=== PATIENT | female | born 1930 | race Caucasian/White ===

== ENCOUNTER 2018-02-14 09:38 | Inpatient (IN) | payer MEDICARE, OTHER ==
[~2018-02-14] VITALS: Ht 149.9 cm; Wt 49.0 kg
[2018-02-14 13:00] VITALS: BP 171/74
--- NOTE | 2018-02-14 13:00 | NUR ---
EYEDOTTER NOTES RECEIVED PATIENT VIA GURNEY FROM AMBULANCE, DIRECT ADMIT FROM SUGEY DURAN, MARSHA MICHELLE GAVE REPORT , AOX3, BANGLADESHI SPEAKING, FAMILY AT BEDSIDE TO TRANSLATE, PATIENT IS ON ROOM AIR O2 SATURATIONG 96%, PAIN IN THE L FOOT, IV R FA 20G, CLEAN AND PATENT, L AV SHUNT THRILL AND BRUIT PRESENT, BELONGINGS LIST SIGNED, NO SKIN ISSUES NOTED, BED IN LOW AND LOCKED POSITION CALL LIGHT WITHIN REACH, WILL CONTINUE TO MONITOR.
--- NOTE | 2018-02-14 13:15 | NUR ---
TUMBLER OPERATOR NOTES PATIENT SEEN AND ASSESSED BY ROSALBA SERNA.
[2018-02-14] MEDS ORDERED: TEMAZEPAM 15 MG CAPSULE PO PRN (13:30)
[2018-02-14] MEDS ORDERED: HYDROCODONE/APAP 10/325MG 1 EA TABLET PO PRN (13:30)
[2018-02-14] MEDS ORDERED: MAG HYDROX/AL HYDROX/SIMETH 30 ML UDC PO PRN (13:30)
[2018-02-14] MEDS ORDERED: ONDANSETRON HCL/PF 4 MG/2 ML VIAL IVP PRN (13:30)
[2018-02-14] MEDS ORDERED: MAGNESIUM HYDROXIDE 30 ML UDC PO PRN (13:30)
[2018-02-14] MEDS ORDERED: HYDROCODONE/APAP 5/325MG 1 EACH TABLET PO PRN (13:30)
[2018-02-14] MEDS ORDERED: BENA20TA9 PO (13:41)
[2018-02-14] MEDS ORDERED: IBUP-2269 PO (13:41)
[2018-02-14] MEDS ORDERED: FURO-145 PO (13:41)
[2018-02-14] MEDS ORDERED: FERR325T23 PO (13:41)
[2018-02-14] MEDS ORDERED: CALC667C6 PO (13:41)
[2018-02-14] MEDS ORDERED: CARV12.52 PO (13:41)
[2018-02-14] MEDS ORDERED: CALC-7 PO (13:41)
[2018-02-14] MEDS ORDERED: LEVO25TA9 PO (13:41)
[2018-02-14] MEDS ORDERED: VANCOMYCIN 1 GM in IV D5W 250 ML IV ONE (14:00)
[2018-02-14] MEDS ORDERED: PIPERACILLIN /TAZOBACTAM 2.25 G in IV D5W 50 ML IV ONE (14:00)
[2018-02-14] MEDS: AMLODIPINE BESYLATE 5 MG TABLET PO SCH (15:00)
[2018-02-14] MEDS: BENAZEPRIL HCL 20 MG TABLET PO SCH (15:00)
[2018-02-14] MEDS ORDERED: FEE PK DOSING 1 MIN EA MC ONE (15:36)
--- NOTE | 2018-02-14 15:42 | NUR ---
STRIKE OFF MACHINE OPERATOR NOTES PATIENTS BP MEDICATIONS HELD HD RN STATED HD WILL START SOON AND TO HOLD
--- NOTE | 2018-02-14 15:49 | NUR ---
PSYCHOLOGICAL AIDE NOTES PER PHARMACY OK TO GIVE ZOSYN AT THIS TIME AND TO HOLD VANCOMYCIN UNTIL AFTER HD.
--- NOTE | 2018-02-14 16:30 | NUR ---
HEAD TENNIS COACH NOTES PATIENT HD STARTING AT THIS TIME.
[2018-02-14 16:52] VITALS: BP 158/78
--- NOTE | 2018-02-14 18:26 | NUR ---
COPRA SAMPLER NOTES PATIENT RECEIVING HD AT THIS TIME, RESTING IN BED, NO SIGNS OF DISTRESS, FAMILY AT BEDSIDE, WILL ENDORSE TO BULLET SWAGING MACHINE ADJUSTER FOR CONTINUITY OF CARE.
[2018-02-14 20:00] VITALS: BP_SYST 100; BP_SYST 149; BP_DIAS 47; BP_DIAS 56
--- NOTE | 2018-02-14 20:00 | NUR ---
DIESEL DINKEY ENGINEER NOTES RECEIVED PT, RECEIVING HD AT THIS TIME, RESTING IN BED, NO SIGNS OF DISTRESS, FAMILY AT BEDSIDE,PT A7OX3, 2L NC, IV IN (R) FA S/L AT THIS TIME.
[2018-02-14] MEDS: CARVEDILOL 12.5 MG TABLET PO SCH (20:15)
[2018-02-14] MEDS: PIPERACILLIN /TAZOBACTAM 2.25 G in IV D5W 50 ML IV SCH (20:18)
[2018-02-14] MEDS: SIMVASTATIN 20 MG TABLET PO SCH (21:25)
[2018-02-15] VITALS: BP_SYST 108; BP_SYST 149; BP_DIAS 48; BP_DIAS 53
[2018-02-15 04:00] VITALS: BP 163/49
[2018-02-15] MEDS: PIPERACILLIN /TAZOBACTAM 2.25 G in IV D5W 50 ML IV SCH ×3 (05:10→20:36)
[2018-02-15 06:17] LABS: BASOPHILS # (AUTO) 0.1 /CMM (0.0-0.2); BASOPHILS % (AUTO) 0.8 % (0.0-2.0); EOSINOPHILS % (AUTO) 3.5 % (0.0-6.0); HEMATOCRIT 33 % (33-45); HEMOGLOBIN 11.4 g/dL (11.5-14.8); LYMPHOCYTES # (AUTO) 1.2 /CMM (0.8-4.8); LYMPHOCYTES % (AUTO) 16.9 % (20.0-44.0); MEAN CORPUSCULAR HGB CONC 34 g/dl (31.0-36.0); MEAN CORPUSCULAR VOLUME 94 fL (82-100); MONOCYTES # (AUTO) 0.9 /CMM (0.1-1.30); MONOCYTES % (AUTO) 13.8 % (2.0-12.0); NEUTROPHILS # (AUTO) 4.4 /CMM (1.8-8.9); PLATELET COUNT (AUTO) 170 /CMM (150-450); RDW COEFFICIENT OF VARIATION 13.3 (11.5-15.0); RED BLOOD CELL COUNT(AUTO) 3.54 MIL/uL (4.0-5.2); WHITE BLOOD COUNT (AUTO) 6.8 K/uL (4.3-11.0)
--- NOTE | 2018-02-15 06:28 | NUR ---
RN CLOSING NOTES PT REMAINED IN STABLE CONDITION THROUGHOUT THE SHIFT, ALL NEEDS MET. CAREGIVER AT BEDSIDE. NO SIGNIFICANT CHANGES NOTED. WILL ENDORSE TO AM SHIFT.
[2018-02-15 06:34] LABS: CALCIUM, SERUM 8.4 mg/dL (8.5-10.1); CARBON DIOXIDE 27 mmol/L (21-32); CHLORIDE 93 mmol/L (98-107); CREATININE 4.9 mg/dL (0.6-1.3); GLUCOSE 89 mg/dL (74-106); MAGNESIUM 2.1 mg/dL (1.8-2.4); PHOSPHORUS 4.1 mg/dL (2.5-4.9); POTASSIUM 4.8 mmol/L (3.5-5.1); SODIUM SERUM 130 mmol/L (136-145); UREA NITROGEN, BLOOD 36 mg/dL (7-18)
[2018-02-15 06:57] LABS: CHOLESTEROL 169 mg/dL (<200); HDL CHOLESTEROL 45 mg/dL (40-60); LDL 110 mg/dL (0-99); THYROID STIMULATING HORMONE 4.314 uIU/mL (0.358-3.74); TRIGLYCERIDES 103 mg/dL (30-150)
[2018-02-15] MEDS ORDERED: PANTOPRAZOLE 40 MG TABLET.DR PO SCH (07:30)
[2018-02-15 08:00] VITALS: BP 154/73
--- NOTE | 2018-02-15 08:23 | NUR ---
EKG RESULT SHARED WITH SHAYNE SERNA NP WHO CONTACTED DOCTOR LAVONNE BARRERA MD. NO NEW ORDERS. PAPER FINDINGS ARE PLACED IN CHART. Addendum: 02/15/18 at 904 by MANJEET KING RN NEW ORDERS FOR TROPONIN AND ECHOCARDIOGRAM. Addendum: 02/15/18 at 904 by MANJEET KING RN NOT ECHOCARDIOGRAM, DOPPLER OF LOWER EXTREMITIES
[2018-02-15] MEDS: BENAZEPRIL HCL 20 MG TABLET PO SCH (10:20)
[2018-02-15] MEDS: CARVEDILOL 12.5 MG TABLET PO SCH ×2 (10:21→20:38)
[2018-02-15] MEDS: AMLODIPINE BESYLATE 5 MG TABLET PO SCH (10:21)
[2018-02-15] MEDS: ASPIRIN EC 81 MG TABLET.DR PO SCH (10:21)
[2018-02-15] MEDS: ISOSORBIDE MONONITRATE (30MG) 30 MG TAB.SR.24H PO SCH (10:21)
[2018-02-15 12:00] VITALS: BP 141/60
[2018-02-15 16:00] VITALS: BP 115/56
[2018-02-15] MEDS ORDERED: VANCOMYCIN 500 MG in IV D5W 100 ML IV PRN (16:00)
--- NOTE | 2018-02-15 19:09 | NUR ---
HANDOFF WITH MARSHA LONG, NIGHT NURSE.
[2018-02-15] MEDS: WARFARIN SODIUM 2.5 MG TABLET PO SCH (19:30)
[2018-02-15] MEDS ORDERED: HEPARIN SODIUM, PORCINE 5000 UNITS/1 ML VIAL IV ONE (19:30)
[2018-02-15 20:00] VITALS: BP 146/57
--- NOTE | 2018-02-15 20:00 | NUR ---
RN INITIAL NOTES: RECEIVED PT IN BED, AWAKE, A/O X3 ON 2L VIA NC RESPIRATION EVEN AND UNLABORED, R HAND IV NOT FLUSHING WELL, WILL REPLACE. BLE OFFLOADED. SAFETY PRECAUTIONS FOR FALL INITIATED, CALL LIGHT IN REACH. PLAN OF CARE DISCUSSED WITH FAMILY AT BEDSIDE. WILL CONTINUE TO MONITOR
[2018-02-15] MEDS ORDERED: HEPARIN INFUSION/D5W 500 ML IV ONE (20:13)
--- NOTE | 2018-02-15 20:20 | NUR ---
RN NOTES INITIAL aPTT BLOOD DRAW DONE.
--- NOTE | 2018-02-15 20:22 | NUR ---
RN NOTES IV STARTED X2 IN R FA #22G ANG R HAND #22G. 4000 UNITS HEPARIN BOLUS GIVEN ORDERED. HEPARIN INFUSION STARTED, RATE PER PROTOCOL. SEE SPREADSHEET.
[2018-02-15] MEDS: HEPARIN INFUSION/D5W 500 ML IV PRN (20:30)
[2018-02-15] MEDS: SIMVASTATIN 20 MG TABLET PO SCH (21:12)
--- NOTE | 2018-02-16 03:00 | NUR ---
RN NOTES PT aPTT RESULTED @ 143 SEC, SPOKE DR CLARK WITH RESULTS, PER MD HOLD HEPARIN FOR 1 HR AND FOLLOW PROTOCOL. HEPARIN STOPED AT 0300AM.
[2018-02-16 04:00] VITALS: BP 142/59
--- NOTE | 2018-02-16 04:00 | NUR ---
RN NOTES RESTARTED HEPARIN DRIP PER PROTOCOL RATE 650 UNITS/HR, 13 MLS/HR, APTT 143.
[2018-02-16] MEDS: PIPERACILLIN /TAZOBACTAM 2.25 G in IV D5W 50 ML IV SCH ×2 (04:30→13:50)
[2018-02-16 06:30] LABS: BASOPHILS % (AUTO) 0.7 % (0.0-2.0); EOSINOPHILS % (AUTO) 5.6 % (0.0-6.0); HEMATOCRIT 28 % (33-45); HEMOGLOBIN 9.6 g/dL (11.5-14.8); MEAN CORPUSCULAR HGB CONC 34 g/dl (31.0-36.0); MEAN CORPUSCULAR VOLUME 94 fL (82-100); MONOCYTES # (AUTO) 0.9 /CMM (0.1-1.30); MONOCYTES % (AUTO) 13.9 % (2.0-12.0); NEUTROPHILS # (AUTO) 4.1 /CMM (1.8-8.9); NEUTROPHILS % (AUTO) 63.8 % (43.0-81.0); PLATELET COUNT (AUTO) 138 /CMM (150-450); RDW COEFFICIENT OF VARIATION 13.5 (11.5-15.0); RED BLOOD CELL COUNT(AUTO) 2.99 MIL/uL (4.0-5.2); WHITE BLOOD COUNT (AUTO) 6.5 K/uL (4.3-11.0)
[2018-02-16 06:32] LABS: INR 1.12 (0.87-1.13)
--- NOTE | 2018-02-16 06:41 | NUR ---
RN CLOSING NOTES PATIENT IN STABLE CONDITION. ALL NEEDS ATTENDED AND PROVIDED. NO ACUTE DISTRESS, NO SOB NOTED. SAFETY MEASURES IN PLACE. BED IN LOW/LOCKED POSITION, SIDE RAILS UP, CALL LIGHT IN REACH. CAREGIVER AT BEDSIDE. WILL ENDORSED TO AM RN FOR NAVYA.
[2018-02-16 06:55] LABS: CALCIUM, SERUM 7.3 mg/dL (8.5-10.1); CARBON DIOXIDE 29 mmol/L (21-32); CHLORIDE 89 mmol/L (98-107); CREATININE 6.1 mg/dL (0.6-1.3); GLUCOSE 91 mg/dL (74-106); SODIUM SERUM 126 mmol/L (136-145); UREA NITROGEN, BLOOD 50 mg/dL (7-18)
--- NOTE | 2018-02-16 07:30 | NUR ---
1ST GRADE TEACHER INITIAL NOTES RECEIVED PATIENT IN BED AWAKE, AOX3, TUNISIAN SPEAKING, ON NC 2L, R FA 22G INFUSING HEPARIN 13ML/HR 650 UNITS/HR, R HAND 22G, L ARM AV SHUNT THRILL AND BRUIT PRESENT, PATIENT HAS COMMODE AT BEDSIDE, SOME BLOOD NOTED IN STOOL, BUTCHERETTE SHAYNE MADE AWARE, PATIENT IS AMBULATORY WITH ASSISTANCE, BED IN LOW AND LOCKED POSITION, CALL LIGHT WITHIN REACH, WILL CONTINUE TO MONITOR.
[2018-02-16 08:00] VITALS: BP 164/59
[2018-02-16] MEDS: DOCUSATE SODIUM 100 MG CAPSULE PO SCH ×2 (08:52→16:12)
[2018-02-16] MEDS: PANTOPRAZOLE 40 MG VIAL IV SCH ×2 (08:52→17:17)
[2018-02-16] MEDS: ASPIRIN EC 81 MG TABLET.DR PO SCH (08:52)
[2018-02-16] MEDS: ISOSORBIDE MONONITRATE (30MG) 30 MG TAB.SR.24H PO SCH (08:53)
[2018-02-16] MEDS: AMLODIPINE BESYLATE 5 MG TABLET PO SCH (08:54)
[2018-02-16] MEDS: BENAZEPRIL HCL 20 MG TABLET PO SCH (08:54)
[2018-02-16] MEDS: CARVEDILOL 12.5 MG TABLET PO SCH ×2 (08:55→21:13)
[2018-02-16] MEDS ORDERED: CARVEDILOL 12.5 MG TABLET PO SCH (09:00)
--- NOTE | 2018-02-16 09:45 | NUR ---
RUBIN RN NOTES PATIENT WENT TO CT OF ABDOMEN VIA WHEELCHAIR.
--- NOTE | 2018-02-16 10:02 | NUR ---
RUBIN RN NOTES PTT LABS BEING DRAWN FOR HEPARIN DRIP.
[2018-02-16 10:23] LABS: BASOPHILS % (AUTO) 0.5 % (0.0-2.0); EOSINOPHILS % (AUTO) 4.9 % (0.0-6.0); HEMATOCRIT 30 % (33-45); HEMOGLOBIN 10.1 g/dL (11.5-14.8); LYMPHOCYTES # (AUTO) 1.1 /CMM (0.8-4.8); LYMPHOCYTES % (AUTO) 14.3 % (20.0-44.0); MEAN CORPUSCULAR HGB CONC 34 g/dl (31.0-36.0); MEAN CORPUSCULAR VOLUME 94 fL (82-100); MONOCYTES # (AUTO) 1.1 /CMM (0.1-1.30); MONOCYTES % (AUTO) 13.6 % (2.0-12.0); NEUTROPHILS # (AUTO) 5.3 /CMM (1.8-8.9); NEUTROPHILS % (AUTO) 66.7 % (43.0-81.0); PLATELET COUNT (AUTO) 145 /CMM (150-450); RDW COEFFICIENT OF VARIATION 13.1 (11.5-15.0); RED BLOOD CELL COUNT(AUTO) 3.16 MIL/uL (4.0-5.2); WHITE BLOOD COUNT (AUTO) 7.9 K/uL (4.3-11.0)
[2018-02-16] MEDS ORDERED: GELATIN SPONGE,ABSORBABLE 1 SPONGE SPONGE TP ONE (10:30)
--- NOTE | 2018-02-16 10:36 | NUR ---
RUBIN RN NOTES PATIENT TO HAVE HD AT THIS TIME, PER INFORMATION CLERK URSZULA HOLD HEPARIN DRIP UNTIL DIALYSIS IS FINISHED.
[2018-02-16 12:00] VITALS: BP 138/50
[2018-02-16 13:30] LABS: CALCIUM, SERUM 7.8 mg/dL (8.5-10.1); CARBON DIOXIDE 24 mmol/L (21-32); CHLORIDE 88 mmol/L (98-107); CREATININE 6.4 mg/dL (0.6-1.3); GLUCOSE 118 mg/dL (74-106); POTASSIUM 5.2 mmol/L (3.5-5.1); SODIUM SERUM 127 mmol/L (136-145); UREA NITROGEN, BLOOD 52 mg/dL (7-18)
--- NOTE | 2018-02-16 14:02 | NUR ---
RUBIN RN NOTES PATIENT HD COMPLETED, 500 OUTPUT, STABLE NO DISTRESS, WILL RESTART HEPARIN PER MD ORDER NO CHANGES IN RATE PER PROTOCOL BASED ON PTT LEVELS DRAWN.
[2018-02-16] MEDS: ACETAMINOPHEN 325 MG TABLET PO PRN (16:09)
[2018-02-16] MEDS ORDERED: WARFARIN SODIUM 2.5 MG TABLET PO SCH (17:00)
[2018-02-16] MEDS: WARFARIN SODIUM 2.5 MG TABLET PO SCH (17:20)
[2018-02-16 18:00] VITALS: BP 142/56
--- NOTE | 2018-02-16 19:24 | NUR ---
RUBIN RN END NOTES PATIENT RESTING IN BED, NO SIGNS OF DISTRESS, HEPARIN DRIP RUNNING, 1999 NEW PTT LAB DRAW, WILL ENDORSE TO IRONING PLEATER FOR CONTINUITY OF CARE.
--- NOTE | 2018-02-16 19:30 | NUR ---
RN NOTE RECEIVED PATIENT IN THE CHAIR, DAUGHTER IS BY THE SIDE, ALERT/ORIENTED X 3, FRENCH SPEAKING, ONGOING HEPARIN DRIPS, PTT DRAW AT 1999, A-FIB 96, NO DISTRESS NOTED, DX LEFT FOOT CELLULITIS, ALL SAFETY MEASURES TAKEN
[2018-02-16 20:00] VITALS: BP 140/63
--- NOTE | 2018-02-16 20:31 | NUR ---
RN NOTE DR NAVARRO IS BY BEDSIDE, DR NAVARRO EVALUATED STOOL, SMALL AMOUNT OF BLOOD NOTED, NEW ORDER TO DC COUMADIN ACKNOWLEDGED
[2018-02-16] MEDS: ATORVASTATIN 10 MG TABLET PO SCH (21:13)
[2018-02-16] MEDS: GUAIFENESIN/D-METHORPHAN HB 5 ML UDC PO PRN (22:11)
--- NOTE | 2018-02-16 22:12 | NUR ---
RN NOTE PRODUCTIVE COUGH, EDUARDO Parry ROLL PLUGGER MACHINE OPERATOR GAVE AN ORDER FOR ROBITUSSIN, ORDER CARRIED OUT
[2018-02-17] VITALS: BP 146/70
[2018-02-17] MEDS: hydrALAZINE HCL IV 20 MG VIAL IV PRN (02:49)
[2018-02-17 04:00] VITALS: BP 157/68
[2018-02-17] MEDS: GUAIFENESIN/D-METHORPHAN HB 5 ML UDC PO PRN ×3 (05:11→20:34)
[2018-02-17 06:44] LABS: INR 1.08 (0.87-1.13)
[2018-02-17 06:49] LABS: ALANINE AMINOTRANSFERASE 20 U/L (12-78); ALBUMIN 2.8 g/dL (3.4-5.0); ALKALINE PHOSPHATASE 69 U/L (46-116); ASPARTATE AMINOTRANSFERASE 22 U/L (15-37); BILIRUBIN,TOTAL 1.3 mg/dL (0.2-1.0); CALCIUM, SERUM 7.9 mg/dL (8.5-10.1); CARBON DIOXIDE 25 mmol/L (21-32); CHLORIDE 97 mmol/L (98-107); CREATININE 4.6 mg/dL (0.6-1.3); GLUCOSE 94 mg/dL (74-106); POTASSIUM 4.2 mmol/L (3.5-5.1); SODIUM SERUM 135 mmol/L (136-145); TOTAL PROTEIN, SERUM 6.9 g/dL (6.4-8.2); UREA NITROGEN, BLOOD 26 mg/dL (7-18)
[2018-02-17 07:01] LABS: BASOPHILS # (AUTO) 0.1 /CMM (0.0-0.2); BASOPHILS % (AUTO) 0.7 % (0.0-2.0); EOSINOPHILS % (AUTO) 2.6 % (0.0-6.0); HEMATOCRIT 29 % (33-45); HEMOGLOBIN 9.9 g/dL (11.5-14.8); LYMPHOCYTES # (AUTO) 0.9 /CMM (0.8-4.8); LYMPHOCYTES % (AUTO) 11.3 % (20.0-44.0); MEAN CORPUSCULAR HGB CONC 34 g/dl (31.0-36.0); MEAN CORPUSCULAR VOLUME 95 fL (82-100); MONOCYTES # (AUTO) 0.9 /CMM (0.1-1.30); MONOCYTES % (AUTO) 11.8 % (2.0-12.0); NEUTROPHILS # (AUTO) 5.8 /CMM (1.8-8.9); NEUTROPHILS % (AUTO) 73.6 % (43.0-81.0); PLATELET COUNT (AUTO) 121 /CMM (150-450); RDW COEFFICIENT OF VARIATION 13.3 (11.5-15.0); RED BLOOD CELL COUNT(AUTO) 3.09 MIL/uL (4.0-5.2); WHITE BLOOD COUNT (AUTO) 7.9 K/uL (4.3-11.0)
[2018-02-17 07:07] LABS: FERRITIN 977 ng/mL (8-388)
[2018-02-17 07:26] LABS: IRON, SERUM 40 ug/dl (50-175); TOTAL IRON BINDING CAPACITY 253 ug/dl (250-450)
--- NOTE | 2018-02-17 07:44 | NUR ---
RUBIN RN NOTE PT STABLE . WILL CONTINUE TO MONITOR TELE AFIB CONTROLLED. NC 2L. WILL CONTINUE TO MONITOR CLOSELY. PT A/OX 3. ALL SAFETY MEASURES IN PLACE.
[2018-02-17 08:00] VITALS: BP 133/51
[2018-02-17] MEDS: CEFAZOLIN 1 GM in IV NS 0.9% 50 ML IV SCH (08:18)
[2018-02-17] MEDS: ISOSORBIDE MONONITRATE (30MG) 30 MG TAB.SR.24H PO SCH (08:19)
[2018-02-17] MEDS: BENAZEPRIL HCL 20 MG TABLET PO SCH (08:20)
[2018-02-17] MEDS: ASPIRIN EC 81 MG TABLET.DR PO SCH (08:20)
[2018-02-17] MEDS: AMLODIPINE BESYLATE 5 MG TABLET PO SCH (08:20)
[2018-02-17] MEDS: CARVEDILOL 12.5 MG TABLET PO SCH ×2 (08:20→20:36)
[2018-02-17] MEDS: DOCUSATE SODIUM 100 MG CAPSULE PO SCH ×2 (08:21→16:17)
[2018-02-17] MEDS: PANTOPRAZOLE 40 MG VIAL IV SCH ×2 (08:21→16:15)
[2018-02-17] MEDS ORDERED: Z GUARD REMEDY 2 OZ OINT TP PRN (08:30)
[2018-02-17 12:00] VITALS: BP 113/51
[2018-02-17] MEDS: HEPARIN INFUSION/D5W 500 ML IV PRN (15:18)
[2018-02-17 16:00] VITALS: BP 122/62
[2018-02-17] MEDS: ACETAMINOPHEN 325 MG TABLET PO PRN (16:51)
[2018-02-17 20:00] VITALS: BP 158/71
[2018-02-17] MEDS: ATORVASTATIN 10 MG TABLET PO SCH (20:36)
--- NOTE | 2018-02-17 21:31 | NUR ---
TD RN NOTES RECEIVED PT ON BED, ALERT ORIENTED X3. ON NASAL CANNULA SATURATING WELL. ON TELE MONITOR AFIB 90S. IV ACCESS ON RFA HEPARIN RUNNING AT 650UNIT/HR (13CC/HR) INFUSING WELL. NO SIGN OF INFILTRATION OR PAIN. IV ACCESS ON RHAND #22 TKO. HD ACCESS ON LA FISTULA NO BLEEDING OR INFECTION. HEAD OF BED ELEVATED. SIDE RAILS UP. BED ALARM ON. CALL LIGHT WITHIN REACH. WILL CONTINUE TO MONITOR PT CLOSELY.
[2018-02-17 21:48] LABS: OCCULT BLOOD STOOL POSITIVE (NEGATIVE)
[2018-02-18] VITALS: BP 136/52
[2018-02-18 04:00] VITALS: BP 179/76
[2018-02-18] MEDS: hydrALAZINE HCL IV 20 MG VIAL IV PRN (04:16)
--- NOTE | 2018-02-18 04:52 | NUR ---
TD RN NOTES BLOOD PRESSURE WENT 179/72. HR 76. GIVEN HYDRALAZINE 10MG. RECHECKED AFTER 30MINS. BLOOD PRESSURE IS 146/62 MMHG UPON MANUAL BLOOD PRESSURE. WILL CONTINUE TO MONITOR PT CLOSELY.
[2018-02-18 07:05] LABS: BASOPHILS % (AUTO) 0.6 % (0.0-2.0); HEMATOCRIT 25 % (33-45); HEMOGLOBIN 8.4 g/dL (11.5-14.8); LYMPHOCYTES # (AUTO) 1.1 /CMM (0.8-4.8); MEAN CORPUSCULAR HGB CONC 34 g/dl (31.0-36.0); MEAN CORPUSCULAR VOLUME 95 fL (82-100); MONOCYTES % (AUTO) 13.3 % (2.0-12.0); NEUTROPHILS # (AUTO) 5.2 /CMM (1.8-8.9); NEUTROPHILS % (AUTO) 71.1 % (43.0-81.0); PLATELET COUNT (AUTO) 118 /CMM (150-450); RDW COEFFICIENT OF VARIATION 13.7 (11.5-15.0); RED BLOOD CELL COUNT(AUTO) 2.62 MIL/uL (4.0-5.2); WHITE BLOOD COUNT (AUTO) 7.3 K/uL (4.3-11.0)
[2018-02-18 07:16] LABS: CALCIUM, SERUM 7.8 mg/dL (8.5-10.1); CARBON DIOXIDE 26 mmol/L (21-32); CHLORIDE 97 mmol/L (98-107); CREATININE 6.1 mg/dL (0.6-1.3); GLUCOSE 94 mg/dL (74-106); MAGNESIUM 2.1 mg/dL (1.8-2.4); PHOSPHORUS 6.4 mg/dL (2.5-4.9); POTASSIUM 4.4 mmol/L (3.5-5.1); SODIUM SERUM 134 mmol/L (136-145); UREA NITROGEN, BLOOD 35 mg/dL (7-18)
[2018-02-18 07:21] LABS: INR 1.14 (0.87-1.13)
--- NOTE | 2018-02-18 07:28 | NUR ---
TD RN NOTES NO ACUTE CHANGES NOTED DURING THE SHIFT. HEAD OF BED ELEVATED. SIDE RAILS UP. PROVIDED COMFORT AND SAFETY. WILL ENDORSE TO THE AM NURSE FOR NAVYA.
--- NOTE | 2018-02-18 07:41 | NUR ---
RUBIN RN NOTES RECEIVED PT ON BED, ALERT ORIENTED X3. ON NASAL CANNULA 2L OF O2. ON TELE MONITOR AFIB 89. IV ACCESS ON RFA HEPARIN RUNNING AT 650UNIT/HR (13CC/HR) INFUSING WELL. NO SIGN OF INFILTRATION OR PAIN. IV ACCESS ON RHAND #22 TKO. HD ACCESS ON LA FISTULA NO BLEEDING OR INFECTION. HEAD OF BED ELEVATED. SIDE RAILS UP. BED ALARM ON. CALL LIGHT WITHIN REACH. WILL CONTINUE TO MONITOR PT CLOSELY WITH SLIGHT SOB NOTED BED IN LOCKED AND LOWEST POSITION ,WILL CONT TO MONITOR.
[2018-02-18 08:00] VITALS: BP 165/65
--- NOTE | 2018-02-18 08:08 | NUR ---
RUBIN RN NOTE PER HOSPITAL PROTOCOL DECREASE HEPARIN DRIP TO 100 UNITS\H AND START AT 550 UNITS WICH 11 ML PER HOUR WILL REPEAT PTT AT 1400 PER HOSPITAL PROTOCOL
[2018-02-18] MEDS: DOCUSATE SODIUM 100 MG CAPSULE PO SCH ×2 (08:30→16:08)
[2018-02-18] MEDS: PANTOPRAZOLE 40 MG VIAL IV SCH ×2 (08:30→16:08)
[2018-02-18] MEDS: AMLODIPINE BESYLATE 5 MG TABLET PO SCH (08:31)
[2018-02-18] MEDS: CARVEDILOL 12.5 MG TABLET PO SCH ×2 (08:31→21:04)
[2018-02-18] MEDS: BENAZEPRIL HCL 20 MG TABLET PO SCH (08:32)
[2018-02-18] MEDS: ISOSORBIDE MONONITRATE (30MG) 30 MG TAB.SR.24H PO SCH (08:32)
[2018-02-18] MEDS: ASPIRIN EC 81 MG TABLET.DR PO SCH (08:32)
[2018-02-18] MEDS: CEFAZOLIN 1 GM in IV NS 0.9% 50 ML IV SCH (08:42)
--- NOTE | 2018-02-18 11:03 | NUR ---
RUBIN RN NOTE SPOKE WITH REAGAN NAVARRETE NOTIFY THAT PATINT HAS SOB AND WITH SEVERE WHEEZING ORDERED CHEST X RAY AND ABG , WILL F\U
[2018-02-18 11:05] LABS: ABG BASE EXCESS -4.5 mmol/L; ABG PH 7.378 (7.350-7.450); ABG PO2 139.9 mmHg (75.0-100.0); AaDO2 18.4 mmHg; COHb 0.3 % (0.5-1.5); MetHb 0.4 % (0.0-1.5); O2Hb 97.3 % (94.0-97.0); SITE, ABG Right Radial; VENT MODE, BG Nasal Cannula
[2018-02-18 12:00] VITALS: BP 145/61
--- NOTE | 2018-02-18 13:30 | NUR ---
TELEGRAPH REPEATER INSTALLER NOTE DR ROMAN VASCULAR DOCTOR AT BEDSIDE AWARE THAT PATIENT STILL HAS BLEEDING WHEN MAKING BM ALSO AWARE THAT ON HEPARIN DRIP ORDERED OK TO CONT TO INFUSE ALSO OK TO AMBULATE TOLERATED AWARE THAT HG TODAY 8.4 ,
--- NOTE | 2018-02-18 15:15 | NUR ---
EXTRUSION PRESS SUPERVISOR NOTE CALLED TO LAB, PTT STILL PENDING
[2018-02-18 16:00] VITALS: BP 126/74
--- NOTE | 2018-02-18 16:02 | NUR ---
SALES ADMINISTRATOR NOTE PER HOSPITAL PROTOCOL PTT 62 CONT HEPARIN DRIP AT 550 UNIT PER HOUR 11 ML PER HOUR WILL DO PTT AT 0600 IN AM TOMORROW
--- NOTE | 2018-02-18 16:38 | NUR ---
TAPPER SHANK NOTE SPOKE WITH REAGAN LARSON P[place]AWAY DRIVER AWARE THAT PATIENT STILL HAS SOME SOB AT TIME AWARE OF CHEST X RAY RESULT ,STATED THAT WILL TALK TO DR KESSLER SWITCH CLEANER AND CHECK PATIENT OK TO ON ON HEPARIN DRIP
[2018-02-18] MEDS ORDERED: *INSULIN REGULAR(HUMULIN R)HUM 100 UNIT/ML VIAL SQ PRN (18:00)
[2018-02-18] MEDS ORDERED: INSULIN REGULAR, HUMAN 100 UNIT/ML 3 ML VIAL SQ PRN (18:00)
[2018-02-18] MEDS ORDERED: DEXTROSE 50%-WATER 50 ML DISP.SYRIN IV PRN (18:00)
--- NOTE | 2018-02-18 18:10 | NUR ---
REINFORCING STEEL MACHINE OPERATOR NOTE SPOKE WITH HD NURSE STATED THAT LARON LDO HD AT 9 PM, CORWIN RN CLOTH DESIGNER AWARE
--- NOTE | 2018-02-18 18:36 | NUR ---
INTERNET DESIGNER NOTE CONT ON HEPARIN DRIP ORDERED, NOT IN CUTE DISTRESS
--- NOTE | 2018-02-18 18:45 | NUR ---
MOLDER TRIMMER NOTE NOTED RECTAL BLEEDING AGAIN MOD AMT, KEEP CLEAN WILFRIDY , DR TABARES NOTIFIED STATED OK CBC AND IF HG LESS THEN 8 OK TO TRANSFUSE 1 UNIT PRBC
[2018-02-18] MEDS ORDERED: MAGNESIUM CITRATE 296 ML BOTTLE PO STA (19:28)
[2018-02-18] MEDS ORDERED: PEG 3350/NA SULF,BICARB,CL/KCL 4,000 ML BOTTLE PO STA (19:28)
[2018-02-18] MEDS ORDERED: NA PHOS,M-B/NA PHOS,DI-BA 1 EA ENEMA RC PRN (19:30)
--- NOTE | 2018-02-18 19:30 | NUR ---
HUMAN RESOURCES TECHNICIAN INITIAL NOTE PT RECEIVED AWAKE AND ALERT WITH FAMILY AT BEDSIDE. A/O X3 AND ABLE TO VERBALIZE NEEDS IN INDONESIAN. ON 2L OF O2 VIA NC AND SATURATING 94%. NOTED WITH AUDIBLE WHEEZING AND SLIGHT SOB. SLIGHT C/O PAIN TO MAGED ANAL AREA. IV RFA CLEAN, DRY WITH HEPARIN DRIP INFUSING. LEFT ARM FISTULA WITH BRUIT AND THRILL PRESENT. CALL LIGHT WITHIN REACH. WILL CONTINUE TO MONITOR.
[2018-02-18 20:00] VITALS: BP_SYST 134; BP_SYST 143; BP_DIAS 64; BP_DIAS 77
--- NOTE | 2018-02-18 21:00 | NUR ---
RAT EXTERMINATOR NOTE REAGAN NAVARRETE ORDERED CONSENT FOR EGD/COLONOSCOPY FOR TOMORROW MORNING. NPO OF MIDNIGHT AND TO DRINK THE GOLYTELY UNTIL BOWEL MOVEMENTS ARE CLEAR. DR NAVARRO ORDERED STAT CBC DUE TO BLOODY STOOL. RESULTS H/H 8. WITH NO NEED TO TRANSFUSE AT THIS TIME. ALSO WITH ORDERS TO HOLD HEPARIN DRIP UNTIL FURTHER NOTICE FROM DR. NAVARRO. DAUGHTER BORIS SIGNED ALL CONSENTS FOR PROCEDURE TOMORROW. STILL AWAITING FOR DIALYSIS NURSE. DAUGHTER REMAINS AT BEDSIDE.
[2018-02-18] MEDS: CEPHALEXIN MONOHYDRATE 250 MG CAPSULE PO SCH (21:03)
[2018-02-18] MEDS: ATORVASTATIN 10 MG TABLET PO SCH (21:03)
[2018-02-18 21:25] LABS: BASOPHILS % (AUTO) 0.3 % (0.0-2.0); EOSINOPHILS % (AUTO) 0.1 % (0.0-6.0); HEMATOCRIT 25 % (33-45); HEMOGLOBIN 8.2 g/dL (11.5-14.8); LYMPHOCYTES # (AUTO) 1.2 /CMM (0.8-4.8); LYMPHOCYTES % (AUTO) 10.7 % (20.0-44.0); MEAN CORPUSCULAR HGB CONC 34 g/dl (31.0-36.0); MEAN CORPUSCULAR VOLUME 95 fL (82-100); MONOCYTES # (AUTO) 1.1 /CMM (0.1-1.30); MONOCYTES % (AUTO) 9.8 % (2.0-12.0); NEUTROPHILS # (AUTO) 8.6 /CMM (1.8-8.9); NEUTROPHILS % (AUTO) 79.1 % (43.0-81.0); PLATELET COUNT (AUTO) 138 /CMM (150-450); RDW COEFFICIENT OF VARIATION 13.9 (11.5-15.0); RED BLOOD CELL COUNT(AUTO) 2.58 MIL/uL (4.0-5.2); WHITE BLOOD COUNT (AUTO) 10.9 K/uL (4.3-11.0)
[2018-02-18] MEDS ORDERED: BLOOD SUGAR DIAGNOSTIC 1 EACH STRIP VI SCH (22:00)
--- NOTE | 2018-02-18 22:00 | NUR ---
PROGRAMS ASSISTANT NOTE DIALYSIS NURSE AT BEDSIDE. PT REMAINS IN NO ACUTE DISTRESS.
[2018-02-19] VITALS (7 sets, daily range): BP systolic 101–178; BP diastolic 40–67
--- NOTE | 2018-02-19 01:00 | NUR ---
DISTRIBUTOR SALES CONSULTANT NOTE DIALYSIS DONE AND PT BP 123/55. NOTED TO BE SLIGHTLY LETHARGIC BUT ANSWERING APPROPRIATELY TO DAUGHTER AT BEDSIDE. PT HAS MANY EPISODES OF BLOODY,WATERY BOWEL MOVEMENTS AND IS C/O DISCOMFORT WHILE DEFECATING . DAUGHTER REQUESTED A RECTAL TUBE. SPOKE WITH PAPER PLATE MACHINE TENDER DR. DOWNS WITH ORDERS TO INSERT RECTAL TUBE. SPOKE WITH DAUGHTER ABOUT INSERTING RECTAL TUBE. DAUGHTER AND PT ARE NOW REFUSING TO INSERT RECTAL TUBE, DRINK THE GOLYTELY AND WOULD LIKE TO POSTPONE EGD/ COLONOSCOPY PROCEDURE SCHEDULED FOR LATER ON TODAY. DAUGHTER ASKED IF PT CAN REST FOR A DAY AND DOES NOT WANT HEPARIN DRIP TO BE RESTARTED AT THIS TIME. EXPLAINED RISKS AND BENEFITS OF FOLLOWING DOCTORS ORDERS TO PT AND DAUGHTER AND THEY BOTH STILL REFUSED AT THIS TIME. DAUGHTER STATED SHE WOULD SPEAK WITH HER FAMILY AND THE DOCTORS FOR PLAN OF CARE.
[2018-02-19 06:43] LABS: BASOPHILS % (AUTO) 0.5 % (0.0-2.0); HEMATOCRIT 24 % (33-45); LYMPHOCYTES # (AUTO) 1.2 /CMM (0.8-4.8); LYMPHOCYTES % (AUTO) 14.6 % (20.0-44.0); MEAN CORPUSCULAR HGB CONC 34 g/dl (31.0-36.0); MEAN CORPUSCULAR VOLUME 95 fL (82-100); MONOCYTES # (AUTO) 0.9 /CMM (0.1-1.30); MONOCYTES % (AUTO) 11.3 % (2.0-12.0); NEUTROPHILS % (AUTO) 73.6 % (43.0-81.0); PLATELET COUNT (AUTO) 139 /CMM (150-450); RDW COEFFICIENT OF VARIATION 13.8 (11.5-15.0); WHITE BLOOD COUNT (AUTO) 8.2 K/uL (4.3-11.0)
[2018-02-19 06:49] LABS: CALCIUM, SERUM 8.1 mg/dL (8.5-10.1); CARBON DIOXIDE 26 mmol/L (21-32); CHLORIDE 102 mmol/L (98-107); CREATININE 4.5 mg/dL (0.6-1.3); GLUCOSE 86 mg/dL (74-106); MAGNESIUM 2.5 mg/dL (1.8-2.4); PHOSPHORUS 5.1 mg/dL (2.5-4.9); POTASSIUM 4.5 mmol/L (3.5-5.1); SODIUM SERUM 139 mmol/L (136-145); UREA NITROGEN, BLOOD 22 mg/dL (7-18)
--- NOTE | 2018-02-19 06:49 | NUR ---
RN NOTE PT REMAINS IN NO ACUTE DISTRESS IN BED. PT DID NOT HAVE ANY SIGNIFICANT CHANGE IN CONDITION DURING SHIFT. PT CONTINUES TO HAVE LOOSE BLOODY STOOL. PT CONTINUE TO C/O DISCOMFORT IN THE PERIANAL AREA DUE TO LOOSE STOOLS. NOTIFIED REAGAN RODRIGUEZ NP AND YENY SINGER BUSINESS PROCESS MANAGER THAT PT DOES NOT WANT EGD/COLONOSCOPY PROCEDURE AT THIS TIME. PT REFUSES TO DRINK THE GOLYTELY WELL. FAMILY ALSO STATES THAT SHE DOESN'T WANT PT TO RECEIVE HEPARIN OR THE PROCEDURE AT THIS TIME BECAUSE SHE IS TOO WEAK. REAGAN NAVARRETE WILL FOLLOW PT IN HOUSE TODAY. CALLED ALL FAMILY MEMBERS AND LEFT MESSAGES. AWAITING CALL BACK. WILL ENDORSE TO AM RN FOR CONTINUITY OF CARE.
[2018-02-19] MEDS: AMLODIPINE BESYLATE 5 MG TABLET PO SCH (08:12)
[2018-02-19] MEDS: BENAZEPRIL HCL 20 MG TABLET PO SCH (08:12)
[2018-02-19] MEDS: DOCUSATE SODIUM 100 MG CAPSULE PO SCH ×2 (08:13→16:14)
[2018-02-19] MEDS: CARVEDILOL 12.5 MG TABLET PO SCH ×2 (08:13→21:47)
[2018-02-19] MEDS: ISOSORBIDE MONONITRATE (30MG) 30 MG TAB.SR.24H PO SCH (08:13)
[2018-02-19] MEDS: PANTOPRAZOLE 40 MG VIAL IV SCH ×2 (08:16→18:01)
[2018-02-19] MEDS: ASPIRIN EC 81 MG TABLET.DR PO SCH (09:00)
[2018-02-19] MEDS: CEPHALEXIN MONOHYDRATE 250 MG CAPSULE PO SCH (09:00)
[2018-02-19 09:27] LABS: IMMUNOGLOBULIN A, SERUM 118 mg/dL (64-422); IMMUNOGLOBULIN G, SERUM 999 mg/dL (700-1600); IMMUNOGLOBULIN M, SERUM 43 mg/dL (26-217)
[2018-02-19 09:58] LABS: *SPE A/G RATIO 1.4 (0.7-1.7); *SPE ALBUMIN 3.5 g/dL (2.9-4.4); *SPE ALPHA-1-GLOBULIN 0.3 g/dL (0.0-0.4); *SPE ALPHA-2-GLOBULIN 0.7 g/dL (0.4-1.0); *SPE BETA GLOBULIN 0.7 g/dL (0.7-1.3); *SPE GLOBULIN, TOTAL 2.5 g/dL (2.2-3.9); *SPE M-SPIKE Not Observed g/dL (Not Observed); *SPEGAMMA GLOBULIN 0.8 g/dL (0.4-1.8)
--- NOTE | 2018-02-19 10:44 | NUR ---
HEAD OF MEASUREMENT & INSIGHTS NOTE. PT NPO REFUSING HEPARIN DRIP. PT A/O X3 REFUSING TO DRINK GOLYTELY. REAGAN Stein AWARE. WILL CONTINUE TO MONITOR PATIENT DAUGHTER @ BEDSIDE.
[2018-02-19] MEDS: VANCOMYCIN HCL 125 MG/2.5 ML ORAL.SUSP PO SCH ×2 (17:57→23:16)
--- NOTE | 2018-02-19 19:45 | NUR ---
OFFICE EQUIPMENT MECHANIC NOTES RECEIVED PT ON BED. A/OX2 FAMILY AT BEDSIDE. ON NASAL CANNULA 2L, SATURATING WELL. IV ACCESS #22 MIDLINE PATENT AND INTACT. PT IS ON NPO STATUS. HEAD OF BED ELEVATED. SIDE RAILS UP. CALL LIGHT WITHIN REACH. WILL CONTINUE TO MONITOR PT CLOSELY.
[2018-02-19 20:43] LABS: BASOPHILS % (AUTO) 0.2 % (0.0-2.0); LYMPHOCYTES # (AUTO) 0.9 /CMM (0.8-4.8); LYMPHOCYTES % (AUTO) 8.5 % (20.0-44.0); MEAN CORPUSCULAR HGB CONC 35 g/dl (31.0-36.0); MEAN CORPUSCULAR VOLUME 94 fL (82-100); MONOCYTES # (AUTO) 0.9 /CMM (0.1-1.30); MONOCYTES % (AUTO) 8.7 % (2.0-12.0); NEUTROPHILS # (AUTO) 8.4 /CMM (1.8-8.9); NEUTROPHILS % (AUTO) 82.6 % (43.0-81.0); PLATELET COUNT (AUTO) 140 /CMM (150-450); RDW COEFFICIENT OF VARIATION 13.6 (11.5-15.0); RED BLOOD CELL COUNT(AUTO) 2.11 MIL/uL (4.0-5.2); WHITE BLOOD COUNT (AUTO) 10.2 K/uL (4.3-11.0)
[2018-02-19 20:46] LABS: HEMATOCRIT 20 % (33-45); HEMOGLOBIN 6.9 g/dL (11.5-14.8)
--- NOTE | 2018-02-19 20:48 | NUR ---
AUTOMOTIVE SERVICE CONSULTANT NOTES CALLED OR FOR PATIENT GH/H RESULTS. HGB OF 6.9 AND HCT OF 20. PATIENT IS IN OR FOR EGD AND COLONOSCOPY.
[2018-02-19 21:01] LABS: BAND % (MANUAL) 3 % (0.0-5.0); LYMPHOCYTES % (MANUAL) 3 % (16-48); MONOCYTES % (MANUAL) 6 % (0-11.0); NEUTROPHILS % (MANUAL) 88 (42-76)
[2018-02-19] MEDS: ATORVASTATIN 10 MG TABLET PO SCH (21:47)
--- NOTE | 2018-02-19 22:08 | NUR ---
INTERIOR ASSEMBLIES DEVELOPER PROVER NOTES RECEIVED PT FROM OR. PT V/S CEHCKED AND STABLE. HGB IS 6.9. CALLED THE LAB FOR TYPE AND SCREEN AND ONE UNIT OF PRBC ORDERED. WILL CONTINUE TO MONITOR PT CLOSELY.
[2018-02-20] VITALS (10 sets, daily range): BP systolic 99–178; BP diastolic 37–79
--- NOTE | 2018-02-20 00:05 | NUR ---
SEED SORTER NOTES PRBC TRANSFUSION STARTED. NO BLOOD TRANSFUSION REACTION NOTED AT THIS TIME. WILL CONTINUE TO MONITOR V/S AND PT CLOSELY.
--- NOTE | 2018-02-20 02:30 | NUR ---
ELEVATOR DISPATCHER NOTES PT REFUSED TO HAVE HER BP TAKE REGULARLY TO MONITOR FOT BT REACTION . EXPLAINED THE RISK AND BENEFITS.
--- NOTE | 2018-02-20 03:23 | NUR ---
FUEL ISLAND ATTENDANT NOTES BLOOD TRANSFUSION DONE. NO TRANSFUSION REACTION NOTED. WILL CONTINUE TO MONITOR PT CLOSELY.
[2018-02-20] MEDS: VANCOMYCIN HCL 125 MG/2.5 ML ORAL.SUSP PO SCH ×4 (05:40→23:09)
--- NOTE | 2018-02-20 07:29 | NUR ---
ELECTRIC METER TESTER NOTES NO ACUTE CHANGES NOTED DURING THE SHIFT. DUE MEDS GIVEN. PROVIDED COMFORT AND SAFETY. WILL ENDORSE TO THE AM NURSE FOR NAVYA.
--- NOTE | 2018-02-20 07:39 | NUR ---
RN NOTES RECEIVED PT FROM DRUM MAKER, A&0X3 [place] SPEAKING. ON 2L NC SATING WELL NO SOB OR DISTRESS NOTED. AFIB ON THE TELE SADIQ HR 65. RFA 22G MIDLINE INTACT NO IVF. BED LOCKED AND IN LOWEST POSITION, CALL LIGHT WITHIN REACH, SIDE RAILS UPX3, WILL CONT TO SADIQ.
[2018-02-20 08:14] LABS: CARBON DIOXIDE 26 mmol/L (21-32); CHLORIDE 103 mmol/L (98-107); CREATININE 5.6 mg/dL (0.6-1.3); GLUCOSE 91 mg/dL (74-106); MAGNESIUM 2.4 mg/dL (1.8-2.4); POTASSIUM 4.8 mmol/L (3.5-5.1); SODIUM SERUM 138 mmol/L (136-145); UREA NITROGEN, BLOOD 31 mg/dL (7-18)
[2018-02-20] MEDS: PANTOPRAZOLE 40 MG VIAL IV SCH ×2 (08:16→16:20)
[2018-02-20 08:17] LABS: BASOPHILS % (AUTO) 0.2 % (0.0-2.0); EOSINOPHILS % (AUTO) 0.2 % (0.0-6.0); HEMATOCRIT 25 % (33-45); HEMOGLOBIN 8.6 g/dL (11.5-14.8); LYMPHOCYTES # (AUTO) 1.1 /CMM (0.8-4.8); LYMPHOCYTES % (AUTO) 10.2 % (20.0-44.0); MEAN CORPUSCULAR HGB CONC 34 g/dl (31.0-36.0); MEAN CORPUSCULAR VOLUME 93 fL (82-100); MONOCYTES % (AUTO) 9.3 % (2.0-12.0); NEUTROPHILS # (AUTO) 8.8 /CMM (1.8-8.9); NEUTROPHILS % (AUTO) 80.1 % (43.0-81.0); PLATELET COUNT (AUTO) 135 /CMM (150-450); RDW COEFFICIENT OF VARIATION 14.8 (11.5-15.0); RED BLOOD CELL COUNT(AUTO) 2.72 MIL/uL (4.0-5.2)
[2018-02-20] MEDS: AMLODIPINE BESYLATE 5 MG TABLET PO SCH (08:17)
[2018-02-20] MEDS: ASPIRIN EC 81 MG TABLET.DR PO SCH (08:17)
[2018-02-20] MEDS: DOCUSATE SODIUM 100 MG CAPSULE PO SCH ×2 (08:17→16:20)
[2018-02-20] MEDS: BENAZEPRIL HCL 20 MG TABLET PO SCH (08:18)
[2018-02-20] MEDS: ISOSORBIDE MONONITRATE (30MG) 30 MG TAB.SR.24H PO SCH (08:18)
[2018-02-20] MEDS: CARVEDILOL 12.5 MG TABLET PO SCH ×2 (08:18→21:19)
--- NOTE | 2018-02-20 10:00 | NUR ---
RN NOTES PER FOREST AIDE REAGAN, RESTART HEPARIN DRIP. DAUGHTER AT BEDSIDE WANTS TO SPEAK WITH FOREST AIDE BEFORE HEPARIN IS RESTARTED, HAS CONCERNS REGARDING BLEEDING AND MEDICATION. REAGAN MADE AWARE HEPARIN NOT STARTED.
[2018-02-20] MEDS ORDERED: EPOETIN ALFA (10,000 UNIT) 10,000 UNIT/ML VIAL IV ONE (12:00)
[2018-02-20] MEDS: HEPARIN INFUSION/D5W 500 ML IV PRN (14:12)
[2018-02-20] MEDS ORDERED: MISCELLANEOUS MED 1 EA EA XX ONE (14:30)
[2018-02-20] MEDS ORDERED: HEPARIN SODIUM, PORCINE 5000 UNITS/1 ML VIAL IV ONE (15:00)
[2018-02-20] MEDS ORDERED: COD LIVER OIL/ZINC OXIDE 120 GM TUBE TP PRN (16:00)
[2018-02-20] MEDS: CLOTRIMAZOLE/BETAMETASONE DIPROPIONATE 15 GM TUBE TP SCH (16:20)
[2018-02-20] MEDS: GUAIFENESIN/D-METHORPHAN HB 5 ML UDC PO PRN (16:21)
--- NOTE | 2018-02-20 18:43 | NUR ---
RN NOTES PT REMAINED IN STABLE CONDITION THROUGHOUT THE SHIFT, ALL NEEDS MET, NO SIGNIFICANT CHANGES NOTED. FAMILY AT BEDSIDE. WILL ENDORSE TO ONCOMING SHIFT.
--- NOTE | 2018-02-20 20:00 | NUR ---
RN NOTES RECEIVED PT RESTING IN BED FAMILY AT BEDSIDE,PT A&0X3 OMANI SPEAKING. ON 2L NC SATING WELL, NO SOB OR DISTRESS NOTED. AFLUTTER ON THE TELE SADIQ HR 86. RFA 22G MIDLINE INTACT, HEPARIN INFUSING @15ML/HR. BED LOCKED AND IN LOWEST POSITION, CALL LIGHT WITHIN REACH, SIDE RAILS UPX3, WILL CONT TO SADIQ.
[2018-02-20] MEDS: ATORVASTATIN 10 MG TABLET PO SCH (21:19)
[2018-02-20 21:35] LABS: INR 1.1 (0.87-1.13)
[2018-02-20] MEDS: WARFARIN SODIUM 5 MG TABLET PO SCH (23:11)
[2018-02-21] VITALS (7 sets, daily range): BP systolic 113–170; BP diastolic 51–75
[2018-02-21 03:34] LABS: BASOPHILS # (AUTO) 0.1 /CMM (0.0-0.2); BASOPHILS % (AUTO) 0.6 % (0.0-2.0); HEMATOCRIT 27 % (33-45); HEMOGLOBIN 8.9 g/dL (11.5-14.8); LYMPHOCYTES # (AUTO) 1.5 /CMM (0.8-4.8); LYMPHOCYTES % (AUTO) 16.4 % (20.0-44.0); MEAN CORPUSCULAR HGB CONC 34 g/dl (31.0-36.0); MEAN CORPUSCULAR VOLUME 93 fL (82-100); MONOCYTES % (AUTO) 11.5 % (2.0-12.0); NEUTROPHILS # (AUTO) 6.4 /CMM (1.8-8.9); NEUTROPHILS % (AUTO) 70.5 % (43.0-81.0); PLATELET COUNT (AUTO) 149 /CMM (150-450); RDW COEFFICIENT OF VARIATION 14.8 (11.5-15.0); RED BLOOD CELL COUNT(AUTO) 2.87 MIL/uL (4.0-5.2); WHITE BLOOD COUNT (AUTO) 9.1 K/uL (4.3-11.0)
[2018-02-21 03:48] LABS: CALCIUM, SERUM 8.3 mg/dL (8.5-10.1); CARBON DIOXIDE 27 mmol/L (21-32); CHLORIDE 100 mmol/L (98-107); CREATININE 4.5 mg/dL (0.6-1.3); GLUCOSE 90 mg/dL (74-106); PHOSPHORUS 4.3 mg/dL (2.5-4.9); POTASSIUM 4.6 mmol/L (3.5-5.1); SODIUM SERUM 137 mmol/L (136-145); UREA NITROGEN, BLOOD 22 mg/dL (7-18)
[2018-02-21 03:56] LABS: INR 1.1 (0.87-1.13)
[2018-02-21] MEDS: VANCOMYCIN HCL 125 MG/2.5 ML ORAL.SUSP PO SCH ×3 (06:18→17:40)
--- NOTE | 2018-02-21 06:26 | NUR ---
RN CLOSING NOTES PT REMAINED IN STABLE CONDITION THROUGHOUT THE SHIFT, ALL NEEDS MET, NO SIGNIFICANT CHANGES NOTED. HEPARIN DRIP RUNNING OVER NIGHT, NO CHANGE IN RATE @15 ML/HR . WILL ENDORSE TO ONCOMING SHIFT.
--- NOTE | 2018-02-21 07:43 | NUR ---
RN NOTES RECEIVED PT FROM CATHETER BUILDER, A&0X3 YORUBA SPEAKING, ON 2L NC SATING WELL NO SOB OR DISTRESS. A FLUTTER/A FIB ON THE TELE SADIQ HR 67. LFA 22G MIDLINE WITH HEPARIN AT 15ML/HR TOLERATING WELL NO SIGNS OF BLEEDING. BED LOCKED AND IN LOWEST POSITION, CALL LIGHT WITHIN REACH, SIDE RAILS UPX3, WILL CONT TO SADIQ.
[2018-02-21] MEDS: AMLODIPINE BESYLATE 5 MG TABLET PO SCH (08:19)
[2018-02-21] MEDS: DOCUSATE SODIUM 100 MG CAPSULE PO SCH ×2 (08:19→16:21)
[2018-02-21] MEDS: ASPIRIN EC 81 MG TABLET.DR PO SCH (08:20)
[2018-02-21] MEDS: CARVEDILOL 12.5 MG TABLET PO SCH ×2 (08:20→21:05)
[2018-02-21] MEDS: BENAZEPRIL HCL 20 MG TABLET PO SCH (08:20)
[2018-02-21] MEDS: CLOTRIMAZOLE/BETAMETASONE DIPROPIONATE 15 GM TUBE TP SCH ×2 (08:21→16:22)
[2018-02-21] MEDS: ISOSORBIDE MONONITRATE (30MG) 30 MG TAB.SR.24H PO SCH (08:21)
[2018-02-21] MEDS: PANTOPRAZOLE 40 MG VIAL IV SCH ×2 (08:21→16:21)
[2018-02-21] MEDS: RENAL NOVASOURCE (8OZ) 1 EA BOX PO SCH (09:00)
[2018-02-21] MEDS: WARFARIN SODIUM 5 MG TABLET PO SCH (16:22)
--- NOTE | 2018-02-21 18:55 | NUR ---
RN NOTES PT REMAINED IN STABLE CONDITION THROUGHOUT THE SHIFT, ALL NEEDS MET. NO SIGNIFICANT CHANGES NOTED. WILL ENDORSE TO ONCOMING SHIFT.
--- NOTE | 2018-02-21 18:57 | NUR ---
RN NOTES PT REMAINED IN STABLE CONDITION THROUGHOUT THE SHIFT, ALL NEEDS MET. NO SIGNIFICANT CHANGES NOTED. WILL ENDORSE TO ONCOMING SHIFT.
--- NOTE | 2018-02-21 19:30 | NUR ---
TELERN FULLY AWAKE, OOB ON A CHAIR, DAUGHTER AT BEDSIDE. ON HEPARIN DRIP AT 750 UNITS /HR. RUNNING AT 15CC/HR VIA RIGHT UPPER ARM MIDLINE. ISOLATION FOR POSITIVE CDIFF. CONTACT ISOLATION PRECAUTIONARY MEASURES OBSERVED. NO NEEDS FOR NOW, BLEEDING PRECAUTIONS AND SAFETY PRECAUTIONS EMPHASIZED. UNDERSTOOD BY PATIENT AND DAUGHTER TRANSLATING. REMAINS A FLUTTER ON THE MONITOR. CONTINUED MONITORING.
[2018-02-21] MEDS: HEPARIN INFUSION/D5W 500 ML IV PRN (19:46)
--- NOTE | 2018-02-21 20:00 | NUR ---
TELERN SEEN BY ROSALBA ESTRADA, FLAGYL PO DISCONTINUED. PER DAUGHTER HAD ONLY ONE TIME SOFT BM TODAY, NO DIARRHEA, NO BLEEDING. ORDERS CARRIED OUT.
[2018-02-21] MEDS ORDERED: METRONIDAZOLE 500 MG TABLET PO SCH (21:00)
[2018-02-21] MEDS: ATORVASTATIN 10 MG TABLET PO SCH (21:05)
[2018-02-21] MEDS: GUAIFENESIN/D-METHORPHAN HB 5 ML UDC PO PRN (21:16)
[2018-02-21] MEDS ORDERED: TEMAZEPAM 7.5 MG CAPSULE ONE (21:19)
--- NOTE | 2018-02-21 21:20 | NUR ---
TELERN DUE MEDS ADMINISTERED. OCC COUGHING SPELLS, ROBITUSSIN ADMINISTERED. EXERTIONAL SOB. ENCOURAGED TO SPACE ACTIVITIES. 02 2L VIA NC MAINTAINED.
[2018-02-22] VITALS (8 sets, daily range): BP systolic 100–162; BP diastolic 45–77
[2018-02-22] MEDS: VANCOMYCIN HCL 125 MG/2.5 ML ORAL.SUSP PO SCH ×4 (00:14→17:09)
[2018-02-22] MEDS: TEMAZEPAM 7.5 MG CAPSULE PO PRN (00:22)
--- NOTE | 2018-02-22 00:30 | NUR ---
TELERN FAMILY LEFT, WILL NEED HEMODIALYSIS IN THE MORNING. NO RESPIRATORY DISTRESS, OCC AUDIBLE WHEEZING, 96% ON 2L VIA NC. NEEDS CLOSER OBSERVATION.
--- NOTE | 2018-02-22 03:17 | NUR ---
TELERN SLEEPING APPEARS COMFORTABLE. NO AUDIBLE WHEEZING OF THIS TIME. CLOSELY MONITORED.
--- NOTE | 2018-02-22 07:50 | NUR ---
RN NOTE RECEIVED PATIENT ALERT AND ORIENTED, SHE IS ABOUT TO MAKE THINGS KNOWN AND VERBALIZE NEEDS. ON 2L O2 VIA NC SATURATING WELL, BREATHING EVEN UNLABORED WITH NO DISTRESS NOTED. PATIENT HAS BEDSIDE COMMODE AND IS ABLE TO AMBULATE WITH ASSISTANCE. CONTINUED ON HEPARIN DRIP AT 750 UNITS /HR. RUNNING AT 15ML/HR VIA RIGHT UPPER ARM MIDLINE. ISOLATION FOR POSITIVE C-DIFF WITH CONTACT ISOLATION MEASURES DONE. BLEEDING PRECAUTIONS AND SAFETY PRECAUTIONS PROVIDED. BED LOW AND LOCKED POSITION. WILL CONTINUE TO MONITOR CONTINUITY OF CARE.
[2018-02-22 08:58] LABS: BASOPHILS # (AUTO) 0.1 /CMM (0.0-0.2); BASOPHILS % (AUTO) 0.6 % (0.0-2.0); EOSINOPHILS % (AUTO) 0.9 % (0.0-6.0); HEMATOCRIT 26 % (33-45); HEMOGLOBIN 8.8 g/dL (11.5-14.8); LYMPHOCYTES # (AUTO) 1.5 /CMM (0.8-4.8); LYMPHOCYTES % (AUTO) 16.4 % (20.0-44.0); MEAN CORPUSCULAR HGB CONC 34 g/dl (31.0-36.0); MEAN CORPUSCULAR VOLUME 94 fL (82-100); MONOCYTES # (AUTO) 0.7 /CMM (0.1-1.30); MONOCYTES % (AUTO) 7.6 % (2.0-12.0); NEUTROPHILS % (AUTO) 74.5 % (43.0-81.0); PLATELET COUNT (AUTO) 193 /CMM (150-450); RDW COEFFICIENT OF VARIATION 14.2 (11.5-15.0); RED BLOOD CELL COUNT(AUTO) 2.77 MIL/uL (4.0-5.2); WHITE BLOOD COUNT (AUTO) 9.5 K/uL (4.3-11.0)
[2018-02-22] MEDS: PANTOPRAZOLE 40 MG VIAL IV SCH (08:58)
[2018-02-22] MEDS: ASPIRIN EC 81 MG TABLET.DR PO SCH (08:59)
[2018-02-22] MEDS: ISOSORBIDE MONONITRATE (30MG) 30 MG TAB.SR.24H PO SCH (08:59)
[2018-02-22] MEDS: AMLODIPINE BESYLATE 5 MG TABLET PO SCH (08:59)
[2018-02-22] MEDS: CARVEDILOL 12.5 MG TABLET PO SCH ×2 (08:59→21:22)
[2018-02-22] MEDS: BENAZEPRIL HCL 20 MG TABLET PO SCH (08:59)
[2018-02-22] MEDS: RENAL NOVASOURCE (8OZ) 1 EA BOX PO SCH (09:00)
[2018-02-22] MEDS: CLOTRIMAZOLE/BETAMETASONE DIPROPIONATE 15 GM TUBE TP SCH ×2 (09:01→17:07)
[2018-02-22 09:12] LABS: INR 2.03 (0.87-1.13)
[2018-02-22 09:15] LABS: CALCIUM, SERUM 8.5 mg/dL (8.5-10.1); CARBON DIOXIDE 25 mmol/L (21-32); CHLORIDE 94 mmol/L (98-107); GLUCOSE 144 mg/dL (74-106); PHOSPHORUS 5.9 mg/dL (2.5-4.9); POTASSIUM 4.8 mmol/L (3.5-5.1); SODIUM SERUM 130 mmol/L (136-145); UREA NITROGEN, BLOOD 33 mg/dL (7-18)
--- NOTE | 2018-02-22 13:00 | NUR ---
RN NOTE RIGHT UPPER ARM MIDLINE IS LEAKING. REMOVED IV SITE STOP HEPARIN DRIP. NOTIFIED PAN PULLER REAGAN RODRIGUEZ ABOUT THE LEAKING MIDLINE. ROSS WALSH WAS NOTIFIED WELL BUT CANNOT REINSERT MIDLINE UNTIL TOMORROW. DAUGHTER REFUSED FOR US TO TRY TO INSERT A PERIPHERAL ON HER MOTHER. ROSALBA KIRK STATED TO ASK DR NAVARRO WHEN HE MAKE HIS ROUNDS IF WE CAN DC HEPARIN SINCE PATIENT IS AT HER GOAL FOR COAGULATION AND NO IV ACCESS. WILL CONTINUE TO MONITOR.
[2018-02-22] MEDS ORDERED: WARFARIN SODIUM 5 MG TABLET PO SCH (17:00)
--- NOTE | 2018-02-22 19:21 | NUR ---
RN NOTE PATIENT REMAINED STABLE THROUGHOUT SHIFT. NO ACUTE CHANGES OR DISTRESS NOTED. WILL ENDORSE TO NEXT SHIFT TO MONITOR CONTINUITY OF CARE.
--- NOTE | 2018-02-22 19:40 | NUR ---
RN INITIAL NOTES: RECEIVED REPORT FROM DAY RN PT IN BED, AWAKE, A/O X4, [place] SPEAKING ONLY, ON 2L VIA NC RESPIRATION EVEN AND UNLABORED. NO IV ACCESS PT'S DEANGELO MIDLINE BECAME NON FUNCTIONAL PER DAY RN REPORT, PRESSURED DRESSING IN PLACED, ALSO PT'S HEPARIN GOT DC BY DR NAVARRO. PT AND FAMILY REFUSING FOR IV REINSERTION. ON TELE MONITORING AFIB HR 76, DENIES ANY PAIN OR DISCOMFORT AT THIS TIME. SAFETY PRECAUTIONS FOR FALL INITIATED CALL LIGHT IN REACH, WILL CONTINUE MONITORING PT
[2018-02-22] MEDS: ATORVASTATIN 10 MG TABLET PO SCH (21:21)
[2018-02-22] MEDS: IPRATROPIUM NEB FS 0.5 MG/2.5 ML AMPUL.NEB NEB PRN (21:51)
[2018-02-22] MEDS: ALBUTEROL FS 2.5 MG/0.5 ML VIAL.NEB NEB PRN (21:51)
--- NOTE | 2018-02-22 22:26 | NUR ---
RN NOTES: MIDDLE OR INTERMEDIATE SCHOOL PRINCIPAL YENY RODRIGUEZ CAME TO THE UNIT TO FOLLOW UP REGARDING PT CONDITION, NO BLOODY STOOL NOTED SINCE THE START OF THE SHIFT 7PM, HOWEVER REPORTED 3LOOSE BM DURING THE DAY, NON BLOODY PER DAY RN REPORT, ALSO MIDDLE OR INTERMEDIATE SCHOOL PRINCIPAL MADE AWARE OF PT'S NO IV ACCESS, PT HAS RIGHT UPPER ARM MIDLINE WHICH WAS REMOVED THIS AM DUE TO NON BEING NON FUNCTIONAL, AND SINCE PT IS HARD STICK UNABLE TO INSERT EVEN USING ACCU VEIN, ALSO FAMILY ALREADY REFUSED FOR INSERTION DESPITE GIVING EDUCATION.
[2018-02-23] VITALS: BP 131/50
[2018-02-23] MEDS: VANCOMYCIN HCL 125 MG/2.5 ML ORAL.SUSP PO SCH ×5 (01:10→23:55)
[2018-02-23 04:00] VITALS: BP 148/56
--- NOTE | 2018-02-23 06:43 | NUR ---
RN CLOSING NOTES: PT IN BED, REMAINS A/O X3, ON 2L VIA NC RESPIRATION EVEN AND UNLABORED. NO ACTIVE BLEEDING NOTED. REMAINS WITHOUT IV ACCESS. PT HAD 4 BLOODY STOOL LAST NIGHT, AND LOTRISONE CREAM APPLIED ON ANAL AREA FOR PT'S COMPLAINT OF ITCHING. VS REMAINS STABLE, NEEDS ATTENDED. REMAINS ON AFIB HR 65. FOR POSSIBLE DC TODAY. EXITCARE COMPLETED. SAFETY PRECAUTIONS FOR FALL REMAINS ENGAGED, CALL LIGHT IN REACH, WILL ENDORSE TO DAY RN FOR NAVYA.
--- NOTE | 2018-02-23 07:52 | NUR ---
RN NOTES: PT IN BED, REMAINS A/O X3, ON 2L VIA NC RESPIRATION EVEN AND UNLABORED. NO ACTIVE BLEEDING NOTED. REMAINS WITHOUT IV ACCESS. ALL, NEEDS ATTENDED. REMAINS ON AFIB HR . SAFETY PRECAUTIONS FOR FALL REMAINS ENGAGED, CALL LIGHT IN REACH, WILL CONT TO MONITOR CLOSELY . NO SOB AT THIS TIME STILL REFUSING TO PLACE IV HL
[2018-02-23 08:00] VITALS: BP 163/54
[2018-02-23] MEDS: ASPIRIN EC 81 MG TABLET.DR PO SCH (08:52)
[2018-02-23] MEDS: AMLODIPINE BESYLATE 5 MG TABLET PO SCH (08:52)
[2018-02-23] MEDS: PANTOPRAZOLE 40 MG TABLET.DR PO SCH (08:52)
[2018-02-23] MEDS: CARVEDILOL 12.5 MG TABLET PO SCH ×2 (08:52→22:02)
[2018-02-23] MEDS: BENAZEPRIL HCL 20 MG TABLET PO SCH (08:53)
[2018-02-23] MEDS: ISOSORBIDE MONONITRATE (30MG) 30 MG TAB.SR.24H PO SCH (08:53)
[2018-02-23] MEDS: RENAL NOVASOURCE (8OZ) 1 EA BOX PO SCH (08:56)
[2018-02-23] MEDS: CLOTRIMAZOLE/BETAMETASONE DIPROPIONATE 15 GM TUBE TP SCH ×2 (09:17→16:37)
--- NOTE | 2018-02-23 09:22 | NUR ---
JOURNALISM INTERNSHIP NOTE ASSISTED TO BSC ,ABLE TO MAKE BM SOFT WITH SOME BLOOD ,WILL F\U, KEEP CLEAN DRY
[2018-02-23 09:58] LABS: BASOPHILS % (AUTO) 0.5 % (0.0-2.0); EOSINOPHILS % (AUTO) 1.8 % (0.0-6.0); HEMATOCRIT 26 % (33-45); HEMOGLOBIN 8.7 g/dL (11.5-14.8); LYMPHOCYTES # (AUTO) 1.3 /CMM (0.8-4.8); LYMPHOCYTES % (AUTO) 13.9 % (20.0-44.0); MEAN CORPUSCULAR HGB CONC 34 g/dl (31.0-36.0); MEAN CORPUSCULAR VOLUME 93 fL (82-100); MONOCYTES # (AUTO) 0.7 /CMM (0.1-1.30); MONOCYTES % (AUTO) 7.4 % (2.0-12.0); NEUTROPHILS # (AUTO) 6.8 /CMM (1.8-8.9); NEUTROPHILS % (AUTO) 76.4 % (43.0-81.0); PLATELET COUNT (AUTO) 243 /CMM (150-450); RDW COEFFICIENT OF VARIATION 13.2 (11.5-15.0); RED BLOOD CELL COUNT(AUTO) 2.76 MIL/uL (4.0-5.2)
[2018-02-23 10:21] LABS: CALCIUM, SERUM 8.6 mg/dL (8.5-10.1); CARBON DIOXIDE 28 mmol/L (21-32); CHLORIDE 99 mmol/L (98-107); CREATININE 4.8 mg/dL (0.6-1.3); GLUCOSE 170 mg/dL (74-106); MAGNESIUM 2.1 mg/dL (1.8-2.4); PHOSPHORUS 4.9 mg/dL (2.5-4.9); POTASSIUM 4.4 mmol/L (3.5-5.1); SODIUM SERUM 134 mmol/L (136-145); UREA NITROGEN, BLOOD 28 mg/dL (7-18)
--- NOTE | 2018-02-23 10:24 | NUR ---
MS RN NOTE SPOKE WITH REAGAN LARSON DEBURR TECHNICIAN AWARE THAT STOOL WITH SOME BLEEDING
[2018-02-23 10:37] LABS: INR 3.68 (0.87-1.13)
--- NOTE | 2018-02-23 11:00 | NUR ---
MS RN NOTE FRANCHESCA LARSON SENIOR JAVA UI DEVELOPER AWARE THAT NO IV ACCES ,STATED ITS NO NEED AT THIS TIME. WILL F\U
[2018-02-23] MEDS ORDERED: CLOT15CR5 TP (13:06)
[2018-02-23] MEDS ORDERED: ATOR10TA PO (13:06)
[2018-02-23] MEDS ORDERED: Isosorbide Mononitrate (30MG) PO (13:06)
[2018-02-23] MEDS ORDERED: METR500T PO (13:06)
[2018-02-23] MEDS ORDERED: WARF5TAB77 PO (13:06)
[2018-02-23] MEDS ORDERED: AMLO5TAB7 PO (13:06)
--- NOTE | 2018-02-23 14:25 | NUR ---
MS RN NOTE ASSISTED TO BSC, ABLE TO MAKE BM, NO BLEEDING NOTED AT THIS TIME ,STOOL IS SOFT, WILL F\U
[2018-02-23 16:00] VITALS: BP 158/65
--- NOTE | 2018-02-23 16:26 | NUR ---
MS RN NOTE PER DR TABARES CRATE LINER OK TO HOLD COUMADIN TODAY INR 3.68
[2018-02-23] MEDS ORDERED: WARFARIN SODIUM 5 MG TABLET PO SCH (17:00)
--- NOTE | 2018-02-23 18:09 | NUR ---
MS RN NOTE CALLED TO YENY TODD RN , NOTIFIED THAT PER REAGAN LARSON RING MAKER OK TO DISCHARGE HOME IF OK PER [place] , STATED THAT WILL SEE PATIENT SOON
--- NOTE | 2018-02-23 19:40 | NUR ---
MS RN INITIAL NOTE PT RECEIVED SITTING UP IN BED WITH DAUGHTER AT BEDSIDE. A/O X3 AND ABLE TO VERBALIZE NEEDS IN [place]. ON 2L OF O2 VIA NC AND SATURATING WELL AT 97%. BREATHING EVEN AND UNLABORED. NO C/O PAIN OR DISCOMFORT AT THIS TIME. REMAINS WITH NO IV ACCESS PER PT AND FAMILY REQUEST. NO S/SX OF BLEEDING AT THIS TIME. CALL LIGHT WITHIN REACH. WILL CONTINUE TO MONITOR.
[2018-02-23 20:00] VITALS: BP 153/80
[2018-02-23] MEDS: ATORVASTATIN 10 MG TABLET PO SCH (22:00)
[2018-02-23] MEDS: SUCRALFATE 1 G/10 ML UDC GT SCH (22:02)
--- NOTE | 2018-02-23 22:58 | NUR ---
MS RN NOTE SEEN AND EXAMINED BY YENY NAVARRETE WITH ORDERS FOR STOOL OB X1 AND FLAGYL 500MG PO Q8H. PT COULD BE DC TOMORROW MORNING.
[2018-02-23] MEDS ORDERED: METRONIDAZOLE 500 MG TABLET PO SCH (23:00)
[2018-02-23] MEDS: TEMAZEPAM 7.5 MG CAPSULE PO PRN (23:59)
[2018-02-24] MEDS ORDERED: LEVOFLOXACIN (500MG) 500 MG TABLET PO SCH (05:00)
[2018-02-24] MEDS: METRONIDAZOLE 500 MG TABLET PO SCH ×2 (05:48→12:14)
[2018-02-24] MEDS: VANCOMYCIN HCL 125 MG/2.5 ML ORAL.SUSP PO SCH ×2 (05:48→12:14)
--- NOTE | 2018-02-24 07:20 | NUR ---
ms rn initial notes Received patient in bed, awake, head of bed elevated, no SOB or distress noted, on 02 @ 2lpm via NC. Alert and oriented x 3, Bahraini speaking only. On isolation for c-diff. Left arm AV fistula, no IV, blood draw on the left arm. No IV access MD aware. Call light with in patient reach, will continue to monitor accordingly.
--- NOTE | 2018-02-24 07:21 | NUR ---
MS RN CLOSING NOTE PT REMAINED STABLE DURING SHIFT. NO ACUTE DISTRESS NOTED. ALL NEEDS ATTENDED TO PROMPTLY. ISOLATION PRECAUTIONS OBSERVED. STOOL OB COLLECTED AND SENT TO LAB. WILL ENDORSE TO NEXT SHIFT FOR CONTINUITY OF CARE.
[2018-02-24 07:29] LABS: CALCIUM, SERUM 8.7 mg/dL (8.5-10.1); CARBON DIOXIDE 25 mmol/L (21-32); CHLORIDE 97 mmol/L (98-107); CREATININE 5.7 mg/dL (0.6-1.3); GLUCOSE 98 mg/dL (74-106); MAGNESIUM 2.3 mg/dL (1.8-2.4); PHOSPHORUS 5.1 mg/dL (2.5-4.9); POTASSIUM 5.3 mmol/L (3.5-5.1); SODIUM SERUM 132 mmol/L (136-145); UREA NITROGEN, BLOOD 40 mg/dL (7-18)
[2018-02-24 07:47] LABS: BASOPHILS # (AUTO) 0.1 /CMM (0.0-0.2); BASOPHILS % (AUTO) 0.5 % (0.0-2.0); EOSINOPHILS % (AUTO) 1.4 % (0.0-6.0); HEMATOCRIT 25 % (33-45); HEMOGLOBIN 8.6 g/dL (11.5-14.8); LYMPHOCYTES # (AUTO) 1.4 /CMM (0.8-4.8); LYMPHOCYTES % (AUTO) 11.9 % (20.0-44.0); MEAN CORPUSCULAR HGB CONC 34 g/dl (31.0-36.0); MEAN CORPUSCULAR VOLUME 94 fL (82-100); MONOCYTES # (AUTO) 0.9 /CMM (0.1-1.30); MONOCYTES % (AUTO) 7.2 % (2.0-12.0); NEUTROPHILS # (AUTO) 9.6 /CMM (1.8-8.9); PLATELET COUNT (AUTO) 252 /CMM (150-450); RDW COEFFICIENT OF VARIATION 13.5 (11.5-15.0); RED BLOOD CELL COUNT(AUTO) 2.67 MIL/uL (4.0-5.2); WHITE BLOOD COUNT (AUTO) 12.2 K/uL (4.3-11.0)
[2018-02-24] MEDS: PANTOPRAZOLE 40 MG TABLET.DR PO SCH (07:56)
[2018-02-24] MEDS: SUCRALFATE 1 G/10 ML UDC GT SCH ×2 (07:57→12:13)
[2018-02-24 08:00] VITALS: BP 166/80
[2018-02-24] MEDS ORDERED: EPOETIN ALFA (10,000 UNIT) 10,000 UNIT/ML VIAL SQ SCH (08:30)
[2018-02-24 08:50] LABS: INR 4.24 (0.87-1.13)
[2018-02-24 11:46] LABS: OCCULT BLOOD STOOL POSITIVE (NEGATIVE)
[2018-02-24] MEDS: RENAL NOVASOURCE (8OZ) 1 EA BOX PO SCH (12:06)
[2018-02-24] MEDS: ASPIRIN EC 81 MG TABLET.DR PO SCH (12:10)
[2018-02-24] MEDS: BENAZEPRIL HCL 20 MG TABLET PO SCH (12:10)
[2018-02-24] MEDS: ISOSORBIDE MONONITRATE (30MG) 30 MG TAB.SR.24H PO SCH (12:10)
[2018-02-24] MEDS: CARVEDILOL 12.5 MG TABLET PO SCH (12:10)
[2018-02-24 12:11] VITALS: BP 151/84
[2018-02-24] MEDS: AMLODIPINE BESYLATE 5 MG TABLET PO SCH (12:11)
[2018-02-24] MEDS: CLOTRIMAZOLE/BETAMETASONE DIPROPIONATE 15 GM TUBE TP SCH (12:12)
[2018-02-24] MEDS ORDERED: WARF5TAB77 PO (12:55)
--- NOTE | 2018-02-24 13:30 | NUR ---
ms internal audit senior manager notes Discharge instructions given to patient and daughter celi and able to understand instructions. s/p Hemodialysis with 2 liters output. No bleeding noted on the dressing. Signed discharge paper and belongings list, no items missing. Skin is intact. Flu and pneumonia vaccine not given due to patient already received vaccinations. Health teaching and education rendered. Informed about follow up with primary health care physician in 1-2 days for INR level and made aware. Patient left in stable condition accompanied by daughter Celi and [employer] assigned via wheelchair, no complaint of pain or discomfort noted, nor chest pain. Vital signs checked and recorded. MD and charge nurse aware of the discharge.
== END 2018-02-24 13:37 | disposition home or self-care (01) | DRG 177 ==
LOC: TELE1 12:48 → MEDSG1 13:17 → TELE1 02-16 07:49 → TELE-TD 02-16 08:09 → TELE1 02-18 11:22 → MEDSG1 02-23 10:08
PROVIDERS: ADMIT Nurse Practitioner Acute Care; ATTEND Nurse Practitioner Acute Care
PROC: 5A1D70Z Performance of Urinary Filtration, Intermittent, Less than 6 Hours Per Day (ICD-10-PCS; 2018-02-14)
PROC: 5A1D70Z Performance of Urinary Filtration, Intermittent, Less than 6 Hours Per Day (ICD-10-PCS; 2018-02-16)
PROC: 5A1D70Z Performance of Urinary Filtration, Intermittent, Less than 6 Hours Per Day (ICD-10-PCS; 2018-02-18)
PROC: 0DB68ZX Excision of Stomach, Via Natural or Artificial Opening Endoscopic, Diagnostic (ICD-10-PCS; 2018-02-19)
PROC: 05H533Z Insertion of Infusion Device into Right Subclavian Vein, Percutaneous Approach (ICD-10-PCS; 2018-02-19)
PROC: B546ZZA Ultrasonography of Right Subclavian Vein, Guidance (ICD-10-PCS; 2018-02-19)
PROC: 0DBK8ZZ Excision of Ascending Colon, Via Natural or Artificial Opening Endoscopic (ICD-10-PCS; 2018-02-19)
PROC: 0DB58ZX Excision of Esophagus, Via Natural or Artificial Opening Endoscopic, Diagnostic (ICD-10-PCS; principal; 2018-02-19 20:21)
PROC: 30233N1 Transfusion of Nonautologous Red Blood Cells into Peripheral Vein, Percutaneous Approach (ICD-10-PCS; 2018-02-19 20:21)
PROC: 5A1D70Z Performance of Urinary Filtration, Intermittent, Less than 6 Hours Per Day (ICD-10-PCS; 2018-02-20)
PROC: 5A1D70Z Performance of Urinary Filtration, Intermittent, Less than 6 Hours Per Day (ICD-10-PCS; 2018-02-22)
PROC: 5A1D70Z Performance of Urinary Filtration, Intermittent, Less than 6 Hours Per Day (ICD-10-PCS; 2018-02-24)
DX: J15.6 Pneumonia due to other Gram-negative bacteria (principal); K29.71 Gastritis, unspecified, with bleeding; I13.2 Hypertensive heart and chronic kidney disease with heart failure and with stage 5 chronic kidney disease, or end stage renal disease; I82.412 Acute embolism and thrombosis of left femoral vein; L03.116 Cellulitis of left lower limb; K57.91 Diverticulosis of intestine, part unspecified, without perforation or abscess with bleeding; E87.1 Hypo-osmolality and hyponatremia; G62.9 Polyneuropathy, unspecified; I48.91 Unspecified atrial fibrillation; N18.6 End stage renal disease; I50.43 Acute on chronic combined systolic (congestive) and diastolic (congestive) heart failure; J15.9 Unspecified bacterial pneumonia; Z99.2 Dependence on renal dialysis; D63.1 Anemia in chronic kidney disease; E78.5 Hyperlipidemia, unspecified; I25.10 Atherosclerotic heart disease of native coronary artery without angina pectoris; Z95.1 Presence of aortocoronary bypass graft; Z90.710 Acquired absence of both cervix and uterus; Z86.718 Personal history of other venous thrombosis and embolism; Z79.899 Other long term (current) drug therapy; H54.62 Unqualified visual loss, left eye, normal vision right eye; D12.2 Benign neoplasm of ascending colon; E03.9 Hypothyroidism, unspecified; I73.9 Peripheral vascular disease, unspecified; K21.0 Gastro-esophageal reflux disease with esophagitis; M10.9 Gout, unspecified; K64.8 Other hemorrhoids; M20.5X2 Other deformities of toe(s) (acquired), left foot; M85.9 Disorder of bone density and structure, unspecified
CPT/HCPCS: 36415; 36569; 36600; 71045-TC; 80048-TC; 80053-TC; 80061-TC; 80202-TC; 82272-TC; 82728-TC; 82746; 82784; 83540-TC; 83735-TC; 83935-TC; 84100-TC; 84155; 84165; 84439-TC; 84443-TC; 84480; 84484-TC; 84550-TC; 85025-TC; 85610-TC; 85730-TC; 86334; 86850-TC; 86921-TC; 88305-TC; 88313-TC; 88342; 90935-TC; 93307-TC; 93970-TC; A4216; A6402; C9113; J0360; J0690; J0885; J1644; J1815; J2405; J2543; J2704; J3370; J7030; J7050; J7060; P9016-BL; Z7610